=== PATIENT | male | born 1965 | race African-American/Black ===

== ENCOUNTER 2021-09-16 15:25 | Emergency (ER) | payer BC, OTHER ==
[~2021-09-16] VITALS: Ht 175.3 cm; Wt 72.1 kg
[2021-09-16] MEDS ORDERED: IBU600T PO (16:57)
[2021-09-16 17:51] VITALS: BP 145/85
== END 2021-09-16 18:06 | disposition home or self-care (01) ==
LOC: ER 15:25
DX: S46.911A Strain of unspecified muscle, fascia and tendon at shoulder and upper arm level, right arm, initial encounter (principal); I10 Essential (primary) hypertension; X58.XXXA Exposure to other specified factors, initial encounter; Y93.89 Activity, other specified; Y92.89 Other specified places as the place of occurrence of the external cause; Y99.8 Other external cause status
CPT/HCPCS: 71045; 73030; 73060